=== PATIENT | female | born 1980 | race Two or more races ===

== ENCOUNTER 2018-08-02 16:15 | Emergency (ER) | payer SELFPAY ==
[~2018-08-02] VITALS: Ht 170.2 cm; Wt 73.5 kg
--- NOTE | 2018-08-02 16:25 | NUR ---
[id number] FRM HOME, ETOH, AGITATED S/P ARGUMENT W/ MOTHER. PATIENT PLACED IN THE ROOM, NO DISTRESS NOTED, WAITING FOR MD OLEA.
[2018-08-02] MEDS ORDERED: OLANZAPINE 10 MG VIAL IM ONE ×2 (16:43→17:00)
--- NOTE | 2018-08-02 16:45 | NUR ---
PATIENT IN FRONT OF THE NURSES STATION ON THE PHONE WITH FAMILY, SCREAMING AND BECAME AGITATED, WHEN PATIENT WAS TOLD TO CALM DOWN, PATIENT BECAME EVEN MORE AGITATED, ALMOST THREW THE PHONE TO THE STAFF, ANILA PARRA WAS CALLED. SECURITY CAME AND ASSISTED PATIENT BACK TO THE ROOM. WHEN PATIENT IS IN THE ROOM, SHE WAS STILL RESTLESS AND AGITATED, REFUSING TO COOPERATE. RECEIVED ORDERS FOR RESTRAINT. PATIENT IN STABLE CONDITION.
[2018-08-02 16:59] LABS: BASOPHILS # (AUTO) 0.2 /CMM (0.0-0.2); BASOPHILS % (AUTO) 2.6 % (0.0-2.0); EOSINOPHILS % (AUTO) 2.4 % (0.0-6.0); HEMATOCRIT 30 % (33-45); HEMOGLOBIN 9.4 g/dL (11.5-14.8); LYMPHOCYTES # (AUTO) 3.3 /CMM (0.8-4.8); LYMPHOCYTES % (AUTO) 49.3 % (20.0-44.0); MEAN CORPUSCULAR HGB CONC 31 g/dl (31.0-36.0); MEAN CORPUSCULAR VOLUME 66 fL (82-100); MONOCYTES # (AUTO) 0.7 /CMM (0.1-1.30); MONOCYTES % (AUTO) 10.8 % (2.0-12.0); NEUTROPHILS # (AUTO) 2.4 /CMM (1.8-8.9); NEUTROPHILS % (AUTO) 34.9 % (43.0-81.0); PLATELET COUNT (AUTO) 518 /CMM (150-450); RED BLOOD CELL COUNT(AUTO) 4.54 MIL/uL (4.0-5.2); WHITE BLOOD COUNT (AUTO) 6.8 K/uL (4.3-11.0)
[2018-08-02 17:06] LABS: CALCIUM, SERUM 8.4 mg/dL (8.5-10.1); CARBON DIOXIDE 25 mmol/L (21-32); CHLORIDE 108 mmol/L (98-107); CREATININE 0.8 mg/dL (0.6-1.3); GLUCOSE 102 mg/dL (74-106); POTASSIUM 3.7 mmol/L (3.5-5.1); SODIUM SERUM 146 mmol/L (136-145); UREA NITROGEN, BLOOD 10 mg/dL (7-18)
[2018-08-02 17:12] LABS: ALANINE AMINOTRANSFERASE 27 U/L (12-78); ALBUMIN 3.6 g/dL (3.4-5.0); ALCOHOL, BLOOD 202 mg/dL (0-0); ALKALINE PHOSPHATASE 64 U/L (46-116); ASPARTATE AMINOTRANSFERASE 19 U/L (15-37); BILIRUBIN,TOTAL 0.2 mg/dL (0.2-1.0); SALICYLATE 3.4 mg/dL (2.8-20.0); TOTAL PROTEIN, SERUM 7.7 g/dL (6.4-8.2)
[2018-08-02 17:14] LABS: ACETAMINOPHEN < 2 ug/ml (10-30)
[2018-08-02 17:51] LABS: BASOPHILS % (MANUAL) 1 % (0.0-2.0); EOSINOPHILS % (MANUAL) 4 % (0-4); LYMPHOCYTES % (MANUAL) 46 % (16-48); MONOCYTES % (MANUAL) 12 % (0-11.0); NEUTROPHILS % (MANUAL) 37 (42-76)
[2018-08-02 18:51] LABS: APPEARANCE,URINE CLEAR (CLEAR); BILIRUBIN,URINE NEGATIVE (NEGATIVE); BLOOD, URINE NEGATIVE Ery/uL (NEGATIVE); COLOR,URINE YELLOW (YELLOW); KETONES,URINE NEGATIVE (NEGATIVE); LEUKOCYTE ESTERASE ,URINE NEGATIVE (NEGATIVE); NITRITE, URINE NEGATIVE (NEGATIVE); PROTEIN,URINE NEGATIVE (NEGATIVE); UGLUCOSE NEGATIVE (NEGATIVE); UROBILINOGEN,URINE 0.2 EU/dL (0.2)
--- NOTE | 2018-08-02 20:21 | NUR ---
AJ PATIENTS MOTHER CALLED WITH PATIENT INFORMATION. .
[2018-08-02 22:32] VITALS: BP 139/80
--- NOTE | 2018-08-02 22:32 | NUR ---
Patient discharged to home in stable condition. Written and verbal after care instructions given. Patient verbalizes understanding of instruction.
== END 2018-08-02 22:34 | disposition home or self-care (01) ==
LOC: ER 16:16
DX: R45.1 Restlessness and agitation (principal); J45.909 Unspecified asthma, uncomplicated; F31.9 Bipolar disorder, unspecified; Z98.890 Other specified postprocedural states; Z88.0 Allergy status to penicillin; Y04.0XXA Assault by unarmed brawl or fight, initial encounter; Y93.89 Activity, other specified; Y92.89 Other specified places as the place of occurrence of the external cause; Y99.8 Other external cause status
CPT/HCPCS: 36415; 80048; 80076; 80305; 80307 ×2; 80329; 81001; 84703; 85025; 96372; 99284; G0480; J3490; 81000-TC

== ENCOUNTER 2021-04-29 10:45 | Emergency (ER) | payer OTHER ==
[~2021-04-29] VITALS: Ht 172.7 cm; Wt 95.3 kg
[2021-04-29 10:47] VITALS: BP 124/80
--- NOTE | 2021-04-29 10:55 | NUR ---
COVID SWAB DONE AND SENT TO LAB
--- NOTE | 2021-04-29 12:20 | NUR ---
Patient discharged to [id number] in stable condition. Written and verbal after care instructions given. Patient verbalizes understanding of instruction.
--- NOTE | 2021-04-29 12:20 | NUR ---
REPORT RECEIVED PT POSITIVE COVID, OFFICER NOTIFIED
== END 2021-04-29 12:24 ==
LOC: ER 10:50
DX: U07.1 COVID-19 (principal); R51.9 Headache, unspecified; R09.81 Nasal congestion; J45.909 Unspecified asthma, uncomplicated; F31.9 Bipolar disorder, unspecified; F17.200 Nicotine dependence, unspecified, uncomplicated; Z98.890 Other specified postprocedural states; Z88.0 Allergy status to penicillin
CPT/HCPCS: 87426; 99283; C9803